=== PATIENT | male | born 1945 | race Caucasian/White ===

== ENCOUNTER 2024-05-06 19:43 | Inpatient (IN) | payer OTHER ==
[~2024-05-06] VITALS: Ht 177.8 cm; Wt 72.1 kg
[2024-05-06 20:03] VITALS: BP_SYST 120; PULSE 78; RESP 16; TEMP 98; O2SAT 97
[2024-05-06 22:03] LABS: BASOPHILS # (AUTO) 0.1 K/uL (0.0-0.2); BASOPHILS % (AUTO) 0.8 % (0.0-2.0); EOSINOPHILS # (AUTO) 0.2 K/uL (0.0-0.4); EOSINOPHILS % (AUTO) 2.9 % (0.0-4.0); HEMATOCRIT 43.4 % (36-54); HEMOGLOBIN 14.9 g/dL (14.0-18.0); LYMPHOCYTES # (AUTO) 3.5 K/uL (1.0-5.5); LYMPHOCYTES % (AUTO) 42.8 % (20.5-51.5); MEAN CORPUSCULAR HEMOGLOBIN 34 pg (27-31); MEAN CORPUSCULAR HGB CONC 34 % (32-36); MEAN CORPUSCULAR VOLUME 99 fL (79.0-98.0); MONOCYTES # (AUTO) 1.1 K/uL (0.0-1.0); MONOCYTES % (AUTO) 13.5 % (1.7-9.3); NEUTROPHILS # (AUTO) 3.3 K/uL (1.8-7.7); PLATELET COUNT (AUTO) 196 K/uL (130-430); RED BLOOD CELL COUNT(AUTO) 4.38 MIL/uL (4.2-6.2); RED CELL DISTRIBUTION WIDTH 14.9 % (9.0-15.0); WHITE BLOOD COUNT (AUTO) 8.3 K/uL (4.8-10.8)
[2024-05-06 22:56] LABS: ANION GAP 5 (5-15); CALCIUM 8.7 mg/dL (8.4-11.0); CARBON DIOXIDE 29 mmol/L (23-29); CHLORIDE 108 mmol/L (98-107); CREATININE 1.23 mg/dL (0.55-1.30); GLUCOSE 87 mg/dL (74-106); POTASSIUM 4.1 mmol/L (3.5-5.1); SODIUM SERUM 142 mmol/L (136-145); UREA NITROGEN, BLOOD 15 mg/dL (8-21)
[2024-05-07 00:50] LABS: BILIRUBIN,URINE NEGATIVE (NEGATIVE); BLOOD, URINE NEGATIVE (NEGATIVE); CLARITY/URINE CLEAR (CLEAR); COLOR,URINE YELLOW (YELLOW); GLUCOSE,URINE NEGATIVE (NEGATIVE); KETONES,URINE TRACE (NEGATIVE); LEUKOCYTE ESTERASE ,URINE NEGATIVE (NEGATIVE); NITRITE, URINE NEGATIVE (NEGATIVE); PROTEIN URINE NEGATIVE (NEGATIVE); UROBILINOGEN,URINE 0.2 (0.2-1.0)
[2024-05-07] MEDS ORDERED: ACETAMINOPHEN 325 MG TABLET PO PRN (04:15)
[2024-05-07] MEDS ORDERED: ONDANSETRON HCL 4 MG/2 ML VIAL IVP PRN (04:15)
[2024-05-07] MEDS ORDERED: [UNRECOGNIZED DRUG - CODE] PO (04:49)
[2024-05-07] MEDS ORDERED: DONE10TA44 PO (04:49)
[2024-05-07] MEDS ORDERED: SERT-436 PO (04:49)
[2024-05-07] MEDS ORDERED: VALP250S3 PO (04:49)
[2024-05-07] MEDS ORDERED: ACET-73 PO (04:49)
[2024-05-07] MEDS ORDERED: METOPROLOL SUCC ER (04:49)
[2024-05-07] MEDS ORDERED: DIGO125T PO (04:49)
[2024-05-07] MEDS ORDERED: APIX5TAB PO (04:49)
[2024-05-07] MEDS: NACL 0.9% 1,000 ML IV SCH (05:01)
[2024-05-07] MEDS ORDERED: HYDROcodone/ACETAMIN 5-325 MG TAB (NORCO/ VICODIN) PO PRN (07:30)
[2024-05-07] MEDS ORDERED: LORazepam 2 MG/ML VIAL IVP PRN (07:30)
[2024-05-07] MEDS: SERTRALINE HCL 50 MG TABLET PO SCH (09:29)
[2024-05-07] MEDS: MEMANTINE HCL 5 MG TABLET PO SCH (09:29)
[2024-05-07] MEDS: DIGOXIN 0.125 MG TABLET PO SCH (09:29)
[2024-05-07] MEDS: VALPROIC ACID ORAL SYRUP 250 MG/5 ML UDC GT SCH (09:36)
[2024-05-07 10:00] VITALS: BP_SYST 120; PULSE 70; RESP 18; TEMP 97.4; O2SAT 98
[2024-05-07] MEDS: APIXABAN 2.5 MG TABLET PO SCH (12:17)
[2024-05-07] MEDS: D5/0.45 NS 1,000 ML IV SCH (12:20)
[2024-05-07 16:27] VITALS: BP_SYST 106; PULSE 62; RESP 18; TEMP 98.1; O2SAT 96
[2024-05-07 17:02] LABS: BASOPHILS # (AUTO) 0.1 K/uL (0.0-0.2); EOSINOPHILS # (AUTO) 0.2 K/uL (0.0-0.4); EOSINOPHILS % (AUTO) 2.2 % (0.0-4.0); HEMATOCRIT 43.2 % (36-54); HEMOGLOBIN 14.8 g/dL (14.0-18.0); LYMPHOCYTES # (AUTO) 3.4 K/uL (1.0-5.5); LYMPHOCYTES % (AUTO) 39.2 % (20.5-51.5); MEAN CORPUSCULAR HEMOGLOBIN 34 pg (27-31); MEAN CORPUSCULAR HGB CONC 34 % (32-36); MEAN CORPUSCULAR VOLUME 99 fL (79.0-98.0); MONOCYTES # (AUTO) 1.2 K/uL (0.0-1.0); MONOCYTES % (AUTO) 13.5 % (1.7-9.3); NEUTROPHILS # (AUTO) 3.9 K/uL (1.8-7.7); NEUTROPHILS % (AUTO) 44.1 % (40.0-70.0); PLATELET COUNT (AUTO) 216 K/uL (130-430); RED BLOOD CELL COUNT(AUTO) 4.38 MIL/uL (4.2-6.2); RED CELL DISTRIBUTION WIDTH 14.8 % (9.0-15.0); WHITE BLOOD COUNT (AUTO) 8.8 K/uL (4.8-10.8)
[2024-05-07 17:21] LABS: INR 1.1 (0.80-1.20); PROTHROMBIN TIME 11.8 SECS (9.5-12.5)
[2024-05-07 17:23] LABS: ALANINE AMINOTRANSFERASE 25 U/L (12-78); ALBUMIN 2.8 g/dL (3.4-4.8); ANION GAP 4 (5-15); ASPARTATE AMINOTRANSFERASE 23 U/L (10-37); CARBON DIOXIDE 29 mmol/L (23-29); CHLORIDE 109 mmol/L (98-107); GLUCOSE 86 mg/dL (74-106); POTASSIUM 4.1 mmol/L (3.5-5.1); SODIUM SERUM 142 mmol/L (136-145); TOTAL BILIRUBIN 0.6 mg/dL (0.0-1.0); TOTAL PROTEIN, SERUM 6.8 g/dL (6.4-8.3); UREA NITROGEN, BLOOD 14 mg/dL (8-21)
[2024-05-07 20:30] VITALS: O2SAT 97
[2024-05-07 20:45] VITALS: BP_SYST 114; PULSE 67; RESP 20; TEMP 98.8; O2SAT 97
[2024-05-07] MEDS: DONEPEZIL HCL 5 MG TABLET (ARICEPT) PO SCH (21:15)
[2024-05-08 09:10] VITALS: BP_SYST 115; PULSE 62; RESP 18; TEMP 96.7; O2SAT 97
[2024-05-08 12:50] VITALS: BP_SYST 113; PULSE 58; RESP 15; TEMP 97.5; O2SAT 97
[2024-05-08 17:16] VITALS: BP_SYST 119; PULSE 58; RESP 15; TEMP 97.4; O2SAT 96
[2024-05-09] VITALS: BP_SYST 101; PULSE 64; RESP 17; TEMP 98.2; O2SAT 96
[2024-05-09 07:04] LABS: BASOPHILS # (AUTO) 0.1 K/uL (0.0-0.2); BASOPHILS % (AUTO) 0.8 % (0.0-2.0); EOSINOPHILS # (AUTO) 0.3 K/uL (0.0-0.4); EOSINOPHILS % (AUTO) 3.9 % (0.0-4.0); HEMATOCRIT 42.8 % (36-54); HEMOGLOBIN 14.6 g/dL (14.0-18.0); LYMPHOCYTES # (AUTO) 2.8 K/uL (1.0-5.5); LYMPHOCYTES % (AUTO) 37.7 % (20.5-51.5); MEAN CORPUSCULAR HEMOGLOBIN 34 pg (27-31); MEAN CORPUSCULAR HGB CONC 34 % (32-36); MEAN CORPUSCULAR VOLUME 98 fL (79.0-98.0); MONOCYTES # (AUTO) 1.1 K/uL (0.0-1.0); MONOCYTES % (AUTO) 14.7 % (1.7-9.3); NEUTROPHILS # (AUTO) 3.2 K/uL (1.8-7.7); NEUTROPHILS % (AUTO) 42.9 % (40.0-70.0); PLATELET COUNT (AUTO) 201 K/uL (130-430); RED BLOOD CELL COUNT(AUTO) 4.38 MIL/uL (4.2-6.2); RED CELL DISTRIBUTION WIDTH 14.4 % (9.0-15.0); WHITE BLOOD COUNT (AUTO) 7.4 K/uL (4.8-10.8)
[2024-05-09 07:39] LABS: ALANINE AMINOTRANSFERASE 25 U/L (12-78); ALBUMIN 2.8 g/dL (3.4-4.8); ANION GAP 8 (5-15); ASPARTATE AMINOTRANSFERASE 21 U/L (10-37); CALCIUM 8.3 mg/dL (8.4-11.0); CARBON DIOXIDE 26 mmol/L (23-29); CHLORIDE 107 mmol/L (98-107); GLUCOSE 78 mg/dL (74-106); POTASSIUM 3.8 mmol/L (3.5-5.1); SODIUM SERUM 141 mmol/L (136-145); TOTAL BILIRUBIN 0.8 mg/dL (0.0-1.0); TOTAL PROTEIN, SERUM 6.5 g/dL (6.4-8.3); UREA NITROGEN, BLOOD 9 mg/dL (8-21)
[2024-05-09 08:00] VITALS: O2SAT 97
[2024-05-09 08:31] VITALS: BP_SYST 125; PULSE 55; RESP 18; TEMP 98.3; O2SAT 97
[2024-05-09 11:09] VITALS: BP_SYST 121; PULSE 72; RESP 16; TEMP 97.3; O2SAT 97
[2024-05-09] MEDS ORDERED: METOPROLOL SUCC ER (12:39)
[2024-05-09] MEDS ORDERED: MEMA5TAB16 PO (12:39)
[2024-05-09 16:29] VITALS: BP_SYST 124; PULSE 72; RESP 16; TEMP 97.1; O2SAT 97
[2024-05-09 20:00] VITALS: BP_SYST 112; PULSE 81; RESP 17; TEMP 97.8; O2SAT 95
[2024-05-10] VITALS: BP_SYST 111; PULSE 79; RESP 18; TEMP 97.7; O2SAT 96
[2024-05-10 08:00] VITALS: BP_SYST 106; PULSE 82; RESP 17; TEMP 97.3; O2SAT 96
[2024-05-10 08:15] VITALS: BP_SYST 106; PULSE 82; RESP 17; TEMP 97.3; O2SAT 96
[2024-05-10 12:57] VITALS: BP_SYST 129; PULSE 68; RESP 16; TEMP 97.7; O2SAT 96
[2024-05-10 15:04] VITALS: BP_SYST 106; PULSE 82; RESP 17; TEMP 97.3; O2SAT 96
[2024-05-10 16:25] VITALS: BP_SYST 119; PULSE 77; RESP 18; TEMP 97.8; O2SAT 97
== END 2024-05-10 18:45 | DRG 640 ==
LOC: SED 19:43 → SMU 05-07 04:12
PROVIDERS: ADMIT Internal Medicine; ATTEND Internal Medicine
DX: R62.7 Adult failure to thrive (principal); G93.41 Metabolic encephalopathy; I13.0 Hypertensive heart and chronic kidney disease with heart failure and stage 1 through stage 4 chronic kidney disease, or unspecified chronic kidney disease; I50.9 Heart failure, unspecified; N18.9 Chronic kidney disease, unspecified; I48.91 Unspecified atrial fibrillation; F03.90 Unspecified dementia, unspecified severity, without behavioral disturbance, psychotic disturbance, mood disturbance, and anxiety; Z79.899 Other long term (current) drug therapy; Z88.8 Allergy status to other drugs, medicaments and biological substances; Z68.22 Body mass index [BMI] 22.0-22.9, adult
CPT/HCPCS: 36415; 70450-TC; 71045; 80048; 80053; 81001; 81003; 82948; 84484; 85025; 85610; 87040; 87081; 97110-GP; 97530-GP; 99285; C1751; J7030